=== PATIENT | male | born 2000 | race Two or more races ===

== ENCOUNTER 2020-03-30 14:06 | Outpatient (REF) | payer MEDICAID, SELFPAY | END 2020-03-30 14:07 | disposition home or self-care (01) | LOC: HO.LAB 14:06 | PROVIDERS: PCP Pediatrics; Visit Provider Internal Medicine | DX: Z20.828 Contact with and (suspected) exposure to other viral communicable diseases (principal) | CPT/HCPCS: C9803; U0003 ==

== ENCOUNTER 2021-08-25 09:55 | Emergency (ER) | payer MEDICAID, SELFPAY ==
--- NOTE | ~2021-08-25 | XR_ITS ---
EXAMINATION: XR FOOT, LEFT CLINICAL INFORMATION: Glass in the ball of left foot. COMPARISON: None TECHNIQUE: AP, lateral, and oblique views of the left foot. FINDINGS: There is no visible radiopaque foreign body seen in the soft tissues. No cysts skin ulceration abrasions. No gross bony abnormality. XR/XR foot LT min 3V IMPRESSION: No radiopaque foreign body seen in the left medial foot. No bony abnormality.
[2021-08-25 10:03] VITALS: BP 132/84; PULSE 72
[2021-08-25 10:26] VITALS: BP 148/64; PULSE 72; RESP 18; TEMP 36.3; O2SAT 97
[2021-08-25 10:44] VITALS: BP 121/85; PULSE 70; TEMP 37.2; O2SAT 98
--- NOTE | 2021-08-25 10:51 | ED.FALL ---
HPI - Fall General Chief Complaint: Fall Stated Complaint: FALL Time Seen by Provider: 08/25/21 10:51 Source: patient Mode of arrival: ambulatory Limitations: no limitations History of Present Illness HPI Narrative: 21 y/o male presenting for evaluation of left foot pain and glass in his foot for the last 4-5 days. He reports stepping on pieces of glass after his bong fell and broke. He pulled out some small pieces but thinks it might be additional pieces stuck inside because it has been hurting for him to but much pressure on the foot. Earlier today when he was walking down the stairs he accidentally put pressure on the ball of the foot and caused him to fall down 6 8 stairs. He scraped front of his left ambrocio on the stairs and it is slightly red. He reports pain is still mostly in the ball of the left foot and he is wondering if there is any retained glass the can be removed here in the emergency department. He is not diabetic, denies any drainage from the area, unsure of last tetanus shot. MD complaint: fall Onset (ago): day(s) (5) Fall from: standing Fall witnessed: no Place fall occurred: home Loss of consciousness: none Prolonged down time: no Symptoms prior to fall: none Context: tripped/slipped Location of injury - extremities: left: lower leg and foot Severity: moderate Severity scale (1-10): 7 Quality: sharp Associated symptoms (after fall): denies Related Data Previous Rx's Medication Instructions Recorded cephalexin 500 mg capsule 500 mg PO Q6H 5 Days #20 cap 08/25/21 ibuprofen 600 mg tablet 600 mg PO Q8H PRN #20 tab 08/25/21 Allergies Allergy/AdvReac Type Severity Reaction Status Date / Time DUST Allergy Unknown UNKNOWN Uncoded 08/02/21 15:00 Review of Systems Review of Systems: Constitutional: No Fever, No Chills Cardiovascular: No Chest Pain, No SOB Gastrointestinal: No Nausea, No Vomiting, No abdominal Pain Musculoskeletal: + joint pain, No Myalgias Skin: + Skin Lesions, No rash Neuro: No Weakness, No Numbness, No Dizziness, No Headache Heme/Lymph: No Bruising, No Lymphadenopathy PMFSH Social History Social History (System 08/02/21 @ 15:00 by Chandni Bolden) Advance Directives: No Advance Directives Information Provided: No Physical Exam Vital Signs: Vital Signs: Last Vital Signs Temp 98.9 F 08/25/21 10:44 Pulse 70 08/25/21 10:44 Resp 18 08/25/21 10:26 BP 121/85 08/25/21 10:44 Pulse Ox 98 08/25/21 10:44 BMI result Body Mass Index 30.0 Appearance: Alert. Oriented X3. No acute distress. HEENT: normal inspection CVS: Normal heart rate and rhythm. Pulses normal. Respiratory: No respiratory distress. Skin: Skin warm and dry. Normal skin color. Normal skin turgor. No rashes. Extremities: Left anterior ambrocio with mild erythema consistent with minor trauma, nontender. Normal range of motion of the left ankle and knee. Ball of the left foot with a tender area with minor erythema, superficial abrasions, no fluctuance or drainage. NV Intact distally. Neuro: Oriented X 3. Limping gait, grossly normal, nonfocal. Course Course Course Narrative: 21-year-old male presents to the ER with pain at the ball of the left foot after he stepped on small piece of glass after he broke his bong. Incident was 4-5 days ago and he has had pain in the foot since and fell down stairs today because of the pain in the foot. Tender area on the foot - will get XR to assess for FB. Tdap ordered. Reevaluation(s) Reevaluation #1: X-ray is normal and does not show any retained foreign body. Will start empiric antibiotics for minor cellulitis to the area. He was encouraged to soak the foot in Epsom salts several times a day and take anti-inflammatories as needed for pain. He has encourage follow-up with his primary care doctor. Stable for DC home. Critical Care Time Critical Care Time Critical Care Time: No Discharge Plan Discharge Clinical Impression: Acute foot pain, Puncture wound Patient Disposition: Home, Self-Care Instructions: Soft Tissue Foreign Body (ED), Puncture Wound (DC) Additional Instructions: Your x-ray today was normal and did not show any glass near foot. Recommend soaking her foot in warm water with Epsom salts 2-3 times per day. Take prescribed antibiotic to help treat and prevent further infection. Recommend Motrin 600 mg every 6-8 hours as needed for pain. You can also take Tylenol 1000 mg every 6 hours. Follow-up with your doctor early next week. Prescriptions: New cephalexin 500 mg capsule 500 mg PO Q6H 5 Days Qty: 20 0RF ibuprofen 600 mg tablet 600 mg PO Q8H PRN (Reason: pain) Qty: 20 0RF
[2021-08-25] MEDS: Diphth,Pertus(ACell),Tet Adult 0.5 ML SYRINGE IM (12:38)
== END 2021-08-25 12:50 | disposition home or self-care (01) ==
PROVIDERS: Emergency Provider Emergency Medicine
DX: S91.332A Puncture wound without foreign body, left foot, initial encounter (principal); S90.812A Abrasion, left foot, initial encounter; M79.672 Pain in left foot; W25.XXXA Contact with sharp glass, initial encounter; Y93.9 Activity, unspecified; Y92.9 Unspecified place or not applicable; Y99.9 Unspecified external cause status
CPT/HCPCS: 73630; 90471; 90715; 99282; 99284

== ENCOUNTER 2021-10-23 09:36 | Emergency (ER) | payer MEDICAID, SELFPAY ==
[2021-10-23 10:02] VITALS: BP 122/75; PULSE 72; RESP 20; TEMP 36.9; O2SAT 97; BMI 25.7
--- NOTE | 2021-10-23 10:27 | ED.GENADULT ---
HPI - General Adult General Chief complaint: General Medical Stated complaint: ?infection Time Seen by Provider: 10/23/21 10:27 Source: patient and family (mother) Mode of arrival: ambulatory Limitations: no limitations History of Present Illness HPI narrative: Patient is a 21 year old male presenting to the emergency department today after exposure to pinworms. Patient states that someone in his household tested positive for pinworms and now he would like treatment. Patient denies any rectal itching, dizziness, lightheadedness, abdominal pain, nausea, vomiting, fever, chills, blurry vision, double vision, loss of vision, chest pain, difficulty breathing, shortness of breath, back pain, night sweats, pain with urination, increased urinary frequency, increased urinary urgency, blood in his urine or stool, syncope or a near syncopal episode, recent trauma or falls, bowel incontinence, bladder incontinence, bowel retention, bladder retention, or any other complaints at this time. Relieving factors: none Exacerbating factors: none Associated symptoms: denies other symptoms Treatments prior to arrival: none Related Data Previous Rx's Medication Instructions Recorded cephalexin 500 mg capsule 500 mg PO Q6H 5 days #20 caps 08/25/21 ibuprofen 600 mg tablet 600 mg PO Q8H PRN pain #20 tabs 08/25/21 albendazole 200 mg tablet 400 mg PO Q2W 2 doses #4 tabs 10/23/21 Allergies Allergy/AdvReac Type Severity Reaction Status Date / Time DUST Allergy Unknown UNKNOWN Uncoded 08/02/21 15:00 Review of Systems Constitutional: Constitutional: Reports no additional constitutional complaints, Denies chills, Denies fever(s) and Denies night sweats Eyes: Eyes: Reports no additional eye complaints, Denies blurry vision, Denies change in vision, Denies diplopia, Denies eye discharge, Denies loss of vision and Denies eye pain ENT: Denies dizziness Cardiovascular: Cardiovascular: Reports no additional cardiovascular complaints, Denies chest pain, Denies lightheadedness, Denies Loss of Consciousness and Denies dyspnea Respiratory: Respiratory: Reports no additional respiratory complaints and Denies dyspnea Gastrointestinal: Gastrointestinal: Reports no additional gastrointestinal complaints, Denies abdominal pain, Denies melena, Denies hematochezia, Denies change in bowel habits and Denies change in stool character Genitourinary: Genitourinary: Reports no additional male genitourinary complaints, Denies hematuria, Denies oliguria, Denies difficulty urinating, Denies dysuria, Denies urinary frequency, Denies urinary hesitancy, Denies urinary incontinence and Denies urinary urgency Musculoskeletal: Musculoskeletal: Reports no additional musculoskeletal complaints, Denies numbness and Denies tingling Neurologic: Denies dizziness, Denies loss of vision, Denies numbness and Denies tingling Psychiatric: Psychiatric: Reports no additional psychiatric complaints Endocrine: Endocrine: Reports no additional endocrine complaints Hematologic/Lymphatic: Hematologic/Lymphatic: Reports no additional hematologic/lymphatic complaints Allergic/Immunologic: Allergic/Immunologic: Reports no additional allergic/immunologic complaints [facility] Past Medical History Attestation statement: The following information was validated with the patient. Source: old records reviewed Social History Social History Advance Directives: No Advance Directives Information Provided: No Physical Exam ED Vital Signs: Vital Signs - 24 hr 10/23/21 10:02 Temperature 98.4 F Pulse Rate 72 Respiratory Rate 20 Blood Pressure 122/75 Pulse Oximetry 97 Oxygen Delivery Method Room Air BMI result Body Mass Index 25.7 Const General: cooperative, no acute distress, alert and awake Nutritional Appearance: well nourished Orientation/consciousness: patient oriented x3 Limitations: no limitations HENMT Head: Yes normal to inspection and Yes atraumatic Ears: hearing grossly normal bilaterally and external ears normal General nose exam: Normal external nose present, no nasal discharge noted and no epistaxis Face and sinus: Yes normal facial exam, No abrasion and No laceration Mouth: Normal oral and palatal mucosa present, no drooling and no muffled voice Eyes General: appearance normal, both eyes and all related structures Periorbital: periorbital findings normal Eyelids: Yes eyelids normal Conjunctivae: conjunctivae normal Pupils: Equal, round and reactive pupils present EOM: EOMs intact bilaterally Neck Neck: Yes normal visual inspection, Yes full ROM and Yes no lymphadenopathy Chest Chest palpation & inspection: normal inspection of the chest Resp Effort & Inspection: normal respiratory effort and able to speak in complete sentences Auscultation: clear to auscultation bilaterally Cardio Rate: regular rate Rhythm: regular rhythm GI Inspection: Yes normal to inspection Neuro General: patient oriented x3 and moves all extremities Cranial nerves: Yes Equal, round and reactive pupils present Cognition (Neuro): normal cognition Motor exam (neuro): 5/5 motor strength present throughout Sensory Exam: Normal double simultaneous stimulation for sensation Coordination: [id number] test normal Extrem General: Yes normal to inspection, Yes full ROM and Yes capillary refill normal Psych Appearance: grossly normal Mental Status: mental status grossly normal Affect: normal affect Attitude: cooperative Thought process: Normal thought process present Thought content: Normal thought content present Insight: Good insight present (Psych) Medical Decision Making MDM Narrative Medical decision making narrative: Patient is a 21 year old male presenting to the emergency department today requesting treatment for pinworms. Patient's physical exam was unremarkable. Patient refused to perform paddle testing for pinworms. I explained my physical exam findings to the patient and the patient's mother. I answered all questions asked by the patient and the patient's mother. I stressed the importance of the patient taking his medication as prescribed. I stressed the importance of the patient following up with his primary care provider. I stressed the importance of the patient returning to the emergency department immediately if he were to develop any dizziness, shortness of breath, difficulty breathing, chest pain, blurry vision, loss of vision, nausea, vomiting, abdominal pain, fever, chills, back pain, or any other complaints. Patient and the patient's mother verbalized agreement and understanding with this treatment plan and discharge. Differential Diagnosis Differential Diagnosis: pinworms, parasite presence, exposure to parasitic individual Medical Records Medical records reviewed: Yes I reviewed the patient's medical records. Discharge Plan Discharge Clinical Impression: Pinworms Patient Disposition: Home, Self-Care Instructions: Pinworm Infection (ED) Additional Instructions: Follow up with your primary care provider. Return to the emergency department immediately if your symptoms worsen or if you develop any dizziness, shortness of breath, difficulty breathing, chest pain, blurry vision, loss of vision, nausea, vomiting, abdominal pain, fever, chills, back pain, or any other complaints. Prescriptions: New albendazole 200 mg tablet 400 mg PO Q2W Qty: 4 0RF Rx Instructions: must administer with food, preferably a high-fat meal No Action cephalexin 500 mg capsule 500 mg PO Q6H 5 Days Qty: 20 0RF ibuprofen 600 mg tablet 600 mg PO Q8H PRN (Reason: pain) Qty: 20 0RF Referrals: Rory Ferrer MD [Primary Care Provider] - Print Language: [place]
== END 2021-10-23 11:21 | disposition home or self-care (01) ==
PROVIDERS: Emergency Provider Emergency Medicine; PCP Pediatrics
DX: B80 Enterobiasis (principal)
CPT/HCPCS: 99283